=== PATIENT | male | born 1970 | race Caucasian/White ===

== ENCOUNTER 2018-11-25 15:10 | Observation (INO) ==
[2018-11-25] MEDS ORDERED: 0.9 % Sodium Chloride 1,000 ML IVC ONE (15:53)
--- NOTE | 2018-11-25 16:03 | Emergency Department Note ---
Disposition Clinical Impression: Hyponatremia Disposition: Admitted As Inpatient Condition: Fair Referrals: Mick Brunson MD [Primary Care Provider] - Forms: ED Satisfaction Letter Time of Disposition: 18:54 General Adult HPI - General Chief complaint: ED Dizziness Stated complaint: dizzy, swallowing issues Time Seen by Provider: 11/25/18 15:35 Source: patient, family Mode of arrival: private vehicle Limitations: no limitations Nursing Notes Reviewed: Yes Vital Signs Reviewed: Yes - History of Present Illness HPI Narrative: Patient presents to the ED complaining of feeling lightheaded, having trouble swallowing, nausea, vomiting and trouble urinating. States symptoms again this morning. He was having dry heaves yesterday. He reports several episodes of nonbloody nonbilious emesis today. No abdominal pain other than some cramping when he is vomiting. He has had loose stools for the past month but has not noted any blood. As far urination he feels the urge to urinate but will only urinate a small amount. He reported this to his PCP when he saw him on November 08 and he states he did some blood work to check his prostate. He has not heard about any of these results. He was also started on a Formoso patch for the first time on November 08. He went back for a routine checkup with his PCP on the at that time his Lasix dose was increased to 40 due to chronic swelling in his legs. He states that swelling is no decreasing. Does report some mild shortness of breath but denies any nasal congestion, rhinorrhea, sneezing or sore throat. He does occasionally cough up some white phlegm. Fever or chills. He has a history of throat and lung cancer that was first diagnosed in 1995. He underwent chemotherapy, radiation and surgery on his throat and 96. He had radiation treatment of his lungs and 96, again 4 years ago and again earlier this year. He follows with Dr. Vega of oncology with last visit 3 months ago. He is scheduled for follow-up next month. History of CVA, GERD and hypertension. He continues to smoke a quarter pack per day which he has for 32 years. He admits to occasional marijuana use. He does not wear oxygen at home. He has had a decreased appetite and is not eating much recently according to family but has continued to drink fluids. Pain Scale: 0 - Related Data Home Medications Medication Instructions Recorded Confirmed BHARATIZolam [Xanax 1 MG Tablet] 1 mg PO TID PRN 09/14/17 11/25/18 Levothyroxine [Synthroid] 100 mcg PO DAILY 09/14/17 11/25/18 OxyCODONE/APAP 10/325 [Percocet 1 each PO Q6HR PRN 09/14/17 11/25/18 10/325 MG] Aspirin [Adult Aspirin Regimen] 81 mg PO DAILY 02/26/18 11/25/18 Budesonide/Formoterol 160/4.5 1 puff IH BIDR 02/26/18 11/25/18 [Symbicort 160/4.5] Omeprazole [PriLOSEC] 40 mg PO DAILY 02/26/18 11/25/18 FentaNYL PATCH [Duragesic] 50 mcg TD Q72H 11/25/18 11/25/18 Furosemide [Lasix] 40 mg PO DAILY 11/25/18 11/25/18 Previous Rx's Medication Instructions Recorded Ondansetron ODT [Zofran ODT] 4 mg SL Q6HR #10 tab.rapdis 06/13/18 Allergies Allergy/AdvReac Type Severity Reaction Status Date / Time CONTRAST DYE AdvReac Weakness Uncoded 10/01/18 10:54 Constitutional: Denies: fever, chills, weakness, weight change Eyes: Denies: eye pain, eye discharge, vision change ENT ED: Denies: ear pain, throat pain, dental pain, hearing loss, epistaxis, congestion, dysphagia Cardiovascular: Denies: chest pain, palpitations, dyspnea on exertion, edema, syncope Respiratory: Reports: as per HPI, cough, dyspnea, sputum production. Denies: wheezes, hemoptysis, stridor Gastrointestinal: Reports: nausea, vomiting, diarrhea. Denies: abdominal pain, constipation, hematemesis, melena, hematochezia Genitourinary: Reports: urgency. Denies: dysuria, frequency, hematuria Musculoskeletal: Denies: back pain, neck pain, arthralgia, myalgia Integumentary: Denies: rash, abrasion, lesions Neurological: Denies: headache, weakness, numbness, paresthesias, confusion, abnormal gait, vertigo Psychiatric: Denies: anxiety, depression, suicidal thoughts, homicidal thoughts, auditory hallucinations, visual hallucinations Endocrine: Denies: fatigue Hematological/Lymphatic: Denies: easy bleeding, easy bruising Allergic/Immunologic: Denies: facial swelling, urticaria Past Medical History - Past Medical History Medical history: Reports: cancer, CVA, GERD, hypertension, thyroid disease Psychiatric history: Reports: schizophrenia - Social History Smoking Status: Current every day smoker Smokeless Tobacco Status: No Alcohol use: Reports: occasionally Drug use: Reports: marijuana Physical Exam - General Limitations: no limitations General appearance: alert, in no apparent distress, other (thin, frail appearing) - Head Head exam: atraumatic, normocephalic, normal inspection - Eye Eye exam: Present: normal appearance, PERRL, EOMI - ENT ENT exam: normal exam, normal oropharynx, mucous membranes moist - Neck Neck exam: Present: normal inspection, full ROM, trachea midline - Chest Chest inspection: Present: normal inspection, symmetric chest wall rise - Respiratory Respiratory exam: Present: normal lung sounds bilaterally - Cardiovascular Cardiovascular exam: Present: regular rate, normal rhythm, normal heart sounds - Abdominal Exam Abdominal exam: Present: soft, Non-Tender. Absent: tenderness, distention, guarding, rebound, rigidity - Extremities Exam Extremities exam: Present: normal inspection, full ROM, pedal edema (1+ bilaterally, no warmth). Absent: tenderness - Back Exam Back exam: Present: normal inspection, full ROM. Absent: tenderness - Neurological Exam Neurological exam: Present: alert, oriented X3 - Psychiatric Psychiatric exam: Present: normal affect, normal mood - Skin Skin exam: Present: warm, dry, intact, normal color Course Course Narrative: Agent presents to the ED complaining of some lightheadedness, nausea and vomiting, trouble urinating, trouble swallowing and occasional shortness of breath with a history of lung and throat cancer. Physical exam is unremarkable. He is nontoxic in appearance and hemodynamically stable although his blood pressure is borderline low. We will give IV hydration while labs and imaging are obtained. - Reevaluation(s) Reevaluation #1: Chest x-ray and soft tissue x-ray of the neck do not show any acute abnormalities. Laboratory studies are notable for a very mild leukocytosis of 12,000 and a significantly low sodium of 99. Kidney function is normal. Urinalysis does not show any evidence of infection. Tox screen is positive for benzos but patient does have prescribed Xanax. Orthostatic vital signs were unremarkable. Blood pressure did improve with some IV fluids. Patient will require admission for continued hydration and monitoring of his hyponatremia. I discussed this with patient and family and they are in agreement. Will contact the hospitalist. Time: 18:45 Reevaluation #2: I have spoken to Dr. Cota, hospice on-call who has agreed to accept the patient. Time: 18:53 Vital Signs Temperature 97.8 F 11/25/18 15:11 Pulse Rate 84 11/25/18 15:11 Respiratory Rate 18 11/25/18 15:11 Blood Pressure 102/67 11/25/18 15:11 O2 Sat by Pulse Oximetry 91 11/25/18 15:11 Temperature 97.8 F 11/25/18 15:11 Pulse Rate 80 11/25/18 18:03 Respiratory Rate 18 11/25/18 18:03 Blood Pressure 115/78 11/25/18 18:03 O2 Sat by Pulse Oximetry 97 11/25/18 18:03 Oxygen Delivery Oxygen Delivery Room Air Medical Decision Making - Medical Records Medical records reviewed: Yes I reviewed the patient's medical records. - Lab Data Lab results reviewed: Yes I reviewed the patient's lab results. Result diagrams: 11/25/18 16:05 11/25/18 16:05 Lab Results 11/25/18 11/25/18 11/25/18 Range/Units 16:05 16:05 17:32 WBC 12.5 H (4.3-11.1) K/mcL RBC 3.88 L (4.19-5.50) M/mcL Hgb 13.4 (12.9-16.9) g/dL Hct 37.3 L (37.5-50.1) % MCV 96.1 D (83.0-100.0) fL MCH 34.5 H (28.0-33.3) pg MCHC 35.9 H (31.6-35.5) g/dL RDW 15.3 H (11.5-14.5) % Plt Count 251 (140-400) K/mcL MPV 7.7 L (9.4-12.4) fL Immature Gran % 1.0 (0-4) % Seg Neutrophils % 89.6 % Lymphocytes % 2.9 % Monocytes % 5.8 % Eosinophils % 0.3 % Basophils % 0.4 % Neutrophils # 11.2 H (1.6-8.9) K/mcL Lymphocytes # 0.4 L (0.6-4.6) K/mcL Monocytes # 0.7 (0.0-1.3) K/mcL Eosinophils # 0.0 (0.0-0.6) K/mcL Basophils # 0.1 (0.0-0.2) K/mcL Sodium 99 L* (136-145) mEq/L Potassium 3.3 L (3.5-5.1) mEq/L Chloride 61 L (98-107) mEq/L Carbon Dioxide 32 H (23-29) mEq/L BUN 6 (6-20) mg/dL Creatinine 0.76 (0.70-1.30) mg/dL Est GFR ( Amer) > 60 (> 60) Est GFR (Non-Af Amer) > 60 (> 60) BUN/Creatinine Ratio 8 (6-26) Glucose 131 H (70-105) mg/dL Calculated Osmolality 207 L (280-300) Calcium 8.0 L (8.6-10.3) mg/dL Urine Color Yellow (Yellow) Urine Clarity Clear (Clear) Urine pH 7.0 (5.0-8.0) pH Units Ur Specific [place] 1.015 (1.010-1.025) Urine Protein Negative (Neg-Trace) mg/dL Urine Glucose (UA) Normal (Normal) mg/dL Urine Ketones Negative (Negative) mg/dL Urine Blood Negative (Negative) Urine Nitrite Negative (Negative) Urine Bilirubin Negative (Negative) Urine Urobilinogen Normal (Normal) mg/dL Ur Leukocyte Esterase Negative (Negative) Ur Culture Indicated? NO (NO) Urine Opiates Screen (Aaginj=383) ng/mL Ur Buprenorphine Scrn (Cutoff=5) ng/mL Ur Oxycodone Screen (Cutoff= 100) ng/mL Ur Barbiturates Screen (Tuibwd=705) ng/mL Ur Phencyclidine Scrn (Cutoff=25) ng/mL Ur Amphetamines Screen (Jibwqu=9566) ng/mL U Benzodiazepines Scrn (Rawfvd=491) ng/mL Urine Cocaine Screen (Cutoff= 300) ng/mL U Marijuana (THC) Screen (Cutoff = 50) ng/mL Ur Drug Screen Interp 11/25/18 Range/Units 17:33 WBC (4.3-11.1) K/mcL RBC (4.19-5.50) M/mcL Hgb (12.9-16.9) g/dL Hct (37.5-50.1) % MCV (83.0-100.0) fL MCH (28.0-33.3) pg MCHC (31.6-35.5) g/dL RDW (11.5-14.5) % Plt Count (140-400) K/mcL MPV (9.4-12.4) fL Immature Gran % (0-4) % Seg Neutrophils % % Lymphocytes % % Monocytes % % Eosinophils % % Basophils % % Neutrophils # (1.6-8.9) K/mcL Lymphocytes # (0.6-4.6) K/mcL Monocytes # (0.0-1.3) K/mcL Eosinophils # (0.0-0.6) K/mcL Basophils # (0.0-0.2) K/mcL Sodium (136-145) mEq/L Potassium (3.5-5.1) mEq/L Chloride (98-107) mEq/L Carbon Dioxide (23-29) mEq/L BUN (6-20) mg/dL Creatinine (0.70-1.30) mg/dL Est GFR ( Amer) (> 60) Est GFR (Non-Af Amer) (> 60) BUN/Creatinine Ratio (6-26) Glucose (70-105) mg/dL Calculated Osmolality (280-300) Calcium (8.6-10.3) mg/dL Urine Color (Yellow) Urine Clarity (Clear) Urine pH (5.0-8.0) pH Units Ur Specific [place] (1.010-1.025) Urine Protein (Neg-Trace) mg/dL Urine Glucose (UA) (Normal) mg/dL Urine Ketones (Negative) mg/dL Urine Blood (Negative) Urine Nitrite (Negative) Urine Bilirubin (Negative) Urine Urobilinogen (Normal) mg/dL Ur Leukocyte Esterase (Negative) Ur Culture Indicated? (NO) Urine Opiates Screen Negative (Onssju=905) ng/mL Ur Buprenorphine Scrn Negative (Cutoff=5) ng/mL Ur Oxycodone Screen Negative (Cutoff= 100) ng/mL Ur Barbiturates Screen Negative (Baifdu=840) ng/mL Ur Phencyclidine Scrn Negative (Cutoff=25) ng/mL Ur Amphetamines Screen Negative (Bngcfz=1905) ng/mL U Benzodiazepines Scrn Positive H (Kphfbo=941) ng/mL Urine Cocaine Screen Negative (Cutoff= 300) ng/mL U Marijuana (THC) Screen Negative (Cutoff = 50) ng/mL Ur Drug Screen Interp See Below - Radiology Data Radiology results reviewed: Yes I reviewed the patient's radiology results. ITS Impressions Chest X-Ray 11/25/18 15:53 IMPRESSION: Stable exam. D/ / Stephan Rodriguez / Stephan Rodriguez Interpreting Provider: Stephan Rodriguez Soft Tissue Neck X-Ray 11/25/18 15:54 IMPRESSION: No acute abnormality. D/ / Stepahn Rodriguez / Stephan Rodriguez Interpreting Provider: Stephan Rodriguez - EKG Data EKG #1 EKG attestation: Yes I reviewed and interpreted this EKG. EKG shows normal: sinus rhythm Rate: normal Rhythm: NSR [place]/QRS: normal Interpretation: no acute changes
[2018-11-25 16:49] LABS: BUN/Creatinine Ratio 8 (6-26); Blood Urea Nitrogen 6 mg/dL (6-20); Carbon Dioxide 32 mEq/L (23-29); Chloride 61 mEq/L (98-107); Glucose 131 mg/dL (70-105); Osmolality,Calculated 207 (280-300); Potassium 3.3 mEq/L (3.5-5.1); Sodium 99 mEq/L (136-145); eGFR For African Americans > 60 (> 60); eGFR For Non-African Americans > 60 (> 60)
[2018-11-25 17:06] LABS: Basophils # 0.1 K/mcL (0.0-0.2); Basophils % 0.4 %; Eosinophils % 0.3 %; Lymphocytes # 0.4 K/mcL (0.6-4.6); Lymphocytes % 2.9 %; Monocytes # 0.7 K/mcL (0.0-1.3); Monocytes % 5.8 %; Neutrophils # 11.2 K/mcL (1.6-8.9); Platelet Count 251 K/mcL (140-400); Segmented Neutrophils % 89.6 %; White Blood Count 12.5 K/mcL (4.3-11.1)
[2018-11-25] MEDS ORDERED: 0.9 % Sodium Chloride 1,000 ML IVC SCH (17:15)
[2018-11-25 17:40] LABS: Bilirubin,Urine Negative (Negative); Blood,Urine Negative (Negative); Clarity,Urine Clear (Clear); Color,Urine Yellow (Yellow); Glucose,Urine (UA) Normal (Normal); Ketones,Urine Negative (Negative); Leukocyte Esterase,Urine Negative (Negative); Nitrite,Urine Negative (Negative); Protein,Urine Negative (Neg-Trace); Specific Gravity,Urine 1.015 (1.010-1.025); Urobilinogen,Urine Normal (Normal)
[2018-11-25 17:42] LABS: Hematocrit 37.3 % (37.5-50.1); Hemoglobin 13.4 g/dL (12.9-16.9); Mean Corpuscular HGB Conc 35.9 g/dL (31.6-35.5); Mean Corpuscular Hemoglobin 34.5 pg (28.0-33.3); Mean Corpuscular Volume 96.1 fL (83.0-100.0); Mean Platelet Volume 7.7 fL (9.4-12.4); Red Blood Count 3.88 M/mcL (4.19-5.50); Red Cell Distribution Width 15.3 % (11.5-14.5)
[2018-11-25 17:52] LABS: Amphetamine Screen,Urine Negative ng/mL (Cutoff=1000); Barbiturate Screen,Urine Negative ng/mL (Cutoff=200); Benzodiazepines Screen,Urine Positive ng/mL (Cutoff=200); Cannabinoid Screen,Urine Negative ng/mL (Cutoff = 50); Cocaine Screen,Urine Negative ng/mL (Cutoff= 300); Opiate Screen,Urine Negative ng/mL (Cutoff=300); Phencyclidine Screen,Urine Negative ng/mL (Cutoff=25)
[2018-11-25] MEDS ORDERED: Naloxone 0.4 MG/ML INJ IVP PRN (18:55)
[2018-11-25] MEDS ORDERED: ALPRAZolam 1 MG TABLET PO PRN (23:15)
[2018-11-25] MEDS ORDERED: *HR* OxyCODONE/APAP 10/325 TABLET PO PRN (23:18)
[2018-11-25] MEDS ORDERED: Ondansetron ODT 4 MG TAB.RAPDIS SL PRN (23:19)
[2018-11-26] MEDS ORDERED: 0.9 % Sodium Chloride 1,000 ML IVC SCH (00:18)
[2018-11-26] MEDS ORDERED: *HR* FentaNYL PATCH 50 MCG PATCH TD SCH ×4 (00:18→09:00)
[2018-11-26] MEDS ORDERED: *HR* OxyCODONE/APAP 10/325 TABLET PO PRN (00:18)
[2018-11-26] MEDS ORDERED: Ondansetron ODT 4 MG TAB.RAPDIS SL PRN ×2 (00:18→11:22)
[2018-11-26] MEDS ORDERED: Ondansetron ODT 4 MG TAB.RAPDIS SL SCH (00:18)
[2018-11-26] MEDS ORDERED: Naloxone 0.4 MG/ML INJ IVP PRN (00:18)
[2018-11-26] MEDS ORDERED: ALPRAZolam 1 MG TABLET PO PRN (00:18)
[2018-11-26] MEDS ORDERED: Nicotine 7 MG PATCH.TD24 TD SCH ×2 (02:15→15:52)
[2018-11-26] MEDS: Budesonide/Formoterol 160/4.5 1 PUFF INH IH SCH ×3 (03:27→21:58)
[2018-11-26] MEDS: *HR* OxyCODONE/APAP 10/325 TABLET PO PRN ×3 (05:35→18:41)
[2018-11-26 06:15] LABS: Alanine Aminotransferase 19 Units/L (7-52); Albumin 2.7 g/dL (3.5-5.7); Albumin/Globulin Ratio 1.2 (1.1-2.2); Alkaline Phosphatase 74 Units/L (34-104); Aspartate Amino Transferase 39 Units/L (13-39); BUN/Creatinine Ratio 9 (6-26); Blood Urea Nitrogen 6 mg/dL (6-20); Calcium 7.4 mg/dL (8.6-10.3); Carbon Dioxide 33 mEq/L (23-29); Chloride 73 mEq/L (98-107); Globulin 2.2 g/dL (2.4-3.5); Glucose 95 mg/dL (70-105); Magnesium 1.6 mg/dL (1.6-2.6); Osmolality,Calculated 229 (280-300); Potassium 2.9 mEq/L (3.5-5.1); Sodium 111 mEq/L (136-145); Total Protein 4.9 g/dL (6.4-8.9); eGFR For African Americans > 60 (> 60); eGFR For Non-African Americans > 60 (> 60)
[2018-11-26] MEDS: Aspirin Enteric Coated 81 MG Tablet PO SCH (07:50)
[2018-11-26] MEDS ORDERED: NON-FORMULARY MEDICATION 1 EACH EACH (Omeprazole [Prilosec] 40 MG) PO SCH (09:00)
[2018-11-26] MEDS ORDERED: Aspirin 81 MG TAB.CHEW PO SCH ×2 (09:00)
[2018-11-26] MEDS ORDERED: Budesonide/Formoterol 160/4.5 1 PUFF INH IH SCH ×2 (10:00)
--- NOTE | 2018-11-26 10:58 | Internal Med History&Physical ---
Date of Encounter: 11/26/18 Time of Encounter: 10:05 Assessment and Plan (1) Hyponatremia Current visit: Yes Status: Acute Likely secondary to diuretic use with vomiting and diarrhea. Sodium level was normal at 137 on 11/01/2018. IV fluids have been ordered. Antiemetics will be given as needed. (2) Hypokalemia Current visit: Yes Status: Acute Present on all labs since February 2018. Supplemental potassium has been ordered. (3) Neutrophilic leukocytosis Current visit: Yes Status: Acute Etiology uncertain. Pro-calcitonin level will be ordered. (4) Lung cancer Current visit: Yes Status: Acute Cell type and stage unknown. Follow-up with [facility] oncology as scheduled in a few weeks. Qualifiers: Laterality: right Lung location: upper lobe of lung Qualified Code(s): C34.11 - Malignant neoplasm of upper lobe, right bronchus or lung (5) Hypothyroidism Current visit: Yes Status: Chronic TSH will be checked. Qualifiers: Hypothyroidism type: unspecified Qualified Code(s): E03.9 - Hypothyroidism, unspecified Internal Medicine - H&P: HPI Chief complaint: Weakness, hyponatremia Admitted From: Emergency Dept Plans for Post Hospital Care: Home History of present illness: Mr. Saldaña is a 48 year old male who came to emergency room complaining of increased weakness over the past 3 days. He reports dry heaves initially but had several episodes of nonbloody vomiting the day prior to admission. Reports he had diarrhea for approximately 10 days without visible blood. He denies fevers or chills. He was evaluated in emergency room and was found to have hyponatremia and hypokalemia. He was admitted to [facility] floor for ongoing care needs. He reports he was placed on Lasix approximately one month ago by his PCP for ankle edema. Cardiovascular history is negative for hypertension, documented heart failure, VT, DVT or pulmonary embolus. He reports negative venous Doppler of both legs 2017. He reports unremarkable EST approximately 2012. He reports echocardiogram 2013 with unknown results. Past Med Surg Social Fam HX - Past Medical History Medical history: cancer, CVA, GERD, hypertension, thyroid disease Additional medical history: right lung cancer last radiation treatment was July 2018 Psychiatric history: anxiety, depression, schizophrenia - Past Surgical History Additional surgical history: throat surgery r/t cancer - Social History Smoking Status: Current every day smoker Packs per day: 04/13 Smokeless Tobacco Status: No Alcohol use: occasionally Drug use: marijuana Internal Medicine - H&P: Meds ALPRAZolam [Xanax 1 MG Tablet] 1 mg PO TID PRN 09/14/17 [History] Levothyroxine [Synthroid] 100 mcg PO DAILY 09/14/17 [History] OxyCODONE/APAP 10/325 [Percocet 10/325 MG] 1 each PO Q6HR PRN 09/14/17 [History] Aspirin [Adult Aspirin Regimen] 81 mg PO DAILY 02/26/18 [History] Budesonide/Formoterol 160/4.5 [Symbicort 160/4.5] 1 puff IH BIDR 02/26/18 [History] Omeprazole [PriLOSEC] 40 mg PO DAILY 02/26/18 [History] Ondansetron ODT [Zofran ODT] 4 mg SL Q6HR #10 tab.rapdis 06/13/18 [Rx] FentaNYL PATCH [Duragesic] 50 mcg TD Q72H 11/25/18 [History] Furosemide [Lasix] 40 mg PO DAILY 11/25/18 [History] Allergy/AdvReac Type Severity Reaction Status Date / Time CONTRAST DYE AdvReac Weakness Uncoded 10/01/18 10:54 All Systems PM: A 10-system review of systems was performed and is negative for pertinent findings except as documented above in the HPI. Review of systems: Gen.: He states his weight has been stable for several months except for fluid fluctuation Cardiovascular: As per history of present illness Respiratory: He has smoked since age 16 never exceeding 1 pack per day. He denies knowledge of chronic lung disease and does not use home oxygen. He reports he has a nebulizer machine and uses [facility]. GI: He has had GERD in the past. 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 He reports he had right foot drop approximately 1997 with recovery. He reports he had CVA approximately 1997 with no permanent neurologic deficit. He denies seizures. 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 In 2013 he was diagnosed with stage IV lung cancer with metastases to intrathoracic lymph nodes. The cell type of lung cancer is not known. He denies distant metastases. He transferred oncology [facility] from [facility] to [facility] physicians August 2018. He denies other known malignancies blood disorders or anemia Psychiatric: He has anxiety and depression but denies other mental health diagnoses. [place] skeletal: He has no known gout. He states he has "deep muscle aches". - Constitutional Vitals: Temp Pulse Resp BP Pulse Ox 97.6 F 66 20 107/73 99 11/26/18 10:42 11/26/18 10:42 11/26/18 10:42 11/26/18 10:42 11/26/18 10:42 Exam: Gen.: He is a well-developed well-nourished male sitting on the side of bed who appears in no acute distress HEENT: Head is atraumatic and normocephalic. Eyes: EOMI. There is no scleral icterus. Mouth: Mucosa is moist. Neck: Supple and nontender. There is no thyromegaly or adenopathy noted. Heart: Regular without murmurs gallops or ectopics Lungs: No wheezes or crackles are heard. Abdomen: Soft and nontender. No masses or guarding are noted. Extremities: He has 1+ edema of the lower legs and dorsum of the feet bi laterally. Dorsalis pedis and posterior tibial pulses are not palpable. Neurologic: Mental status: He is talkative and a good historian. Cranial nerves: Smile is symmetric. There is very slight flattening of the right nasolabial fold at rest. Right forehead shows slight flattening of musculature at rest but moves on forehead wrinkling maneuver. Tongue protrudes midline. EOMI. Motor: There is no pronator drift. Cerebellar: Finger to nose is intact bilaterally. Skin: Warm and dry Internal Med - H&P Results - Labs CBC & Chem 7: 11/25/18 16:05 11/26/18 05:23 Labs: Short CBC 11/25/18 Range/Units 16:05 WBC 12.5 H (4.3-11.1) K/mcL Hgb 13.4 (12.9-16.9) g/dL Hct 37.3 L (37.5-50.1) % Plt Count 251 (140-400) K/mcL Neutrophils # 11.2 H (1.6-8.9) K/mcL BMP 11/25/18 11/26/18 16:05 05:23 Sodium 99 L* 111 L* D Potassium 3.3 L 2.9 L Chloride 61 L 73 L Carbon Dioxide 32 H 33 H BUN 6 6 Creatinine 0.76 0.68 L Glucose 131 H 95 Calcium 8.0 L 7.4 L Liver Function 11/26/18 Range/Units 05:23 Total Bilirubin 1.0 (0.3-1.0) mg/dL AST 39 (13-39) Units/L ALT 19 (7-52) Units/L Alkaline Phosphatase 74 (34-104) Units/L Albumin 2.7 L (3.5-5.7) g/dL Urine 11/25/18 Range/Units 17:32 Urine Color Yellow (Yellow) Urine Clarity Clear (Clear) Urine pH 7.0 (5.0-8.0) pH Units Ur Specific [place] 1.015 (1.010-1.025) Urine Protein Negative (Neg-Trace) mg/dL Urine Glucose (UA) Normal (Normal) mg/dL - Impressions ITS Impressions Chest X-Ray 11/25/18 15:53 IMPRESSION: Stable exam. D/ / Stephan Rodriguez / Stephan Rodriguez Interpreting Provider: Stephan Rodriguez Soft Tissue Neck X-Ray 11/25/18 15:54 IMPRESSION: No acute abnormality. D/ / Stephan Rodriguez / Stephan Rodriguez Interpreting Provider: Stephan Rodriguez - VTE Reasons for not Prescribing Prophylaxis: Treatment not Indicated - Low risk for VTE
[2018-11-26] MEDS: 0.9 % Sodium Chloride 1,000 ML IVC SCH (15:09)
[2018-11-26] MEDS ORDERED: Nicotine 21 MG PATCH.TD24 TD SCH (16:15)
--- NOTE | 2018-11-26 17:38 | Electrocardiograph Report ---
[address] [address] Test Date: 2018-11-25 Pat Name: Scott Saldaña Department: EDP-12 Room: [facility] Gender: M Machine Stamper: : 1970 Requested By: Floresita Frias Order Number: [id number] Reading MD: Cuba Montero Measurements Intervals [place] Rate: 82 P: 52 DE: 200 QRS: 59 QRSD: 113 T: 59 QT: 456 QTc: 533 Interpretive Statements Sinus rhythm Borderline intraventricular conduction delay Electronically Signed On 11-26-2018 17:36:34 EDT by Cuba Montero
[2018-11-26] MEDS: ALPRAZolam 1 MG TABLET PO PRN (18:41)
[2018-11-27] MEDS: *HR* OxyCODONE/APAP 10/325 TABLET PO PRN (06:29)
[2018-11-27 06:45] LABS: Basophils % 0.5 %; Eosinophils # 0.2 K/mcL (0.0-0.6); Eosinophils % 2.4 %; Hematocrit 34.6 % (37.5-50.1); Hemoglobin 12.4 g/dL (12.9-16.9); Immature Granulocytes % 0.9 % (0-4); Lymphocytes # 0.7 K/mcL (0.6-4.6); Lymphocytes % 8.2 %; Mean Corpuscular HGB Conc 35.8 g/dL (31.6-35.5); Mean Corpuscular Hemoglobin 35.8 pg (28.0-33.3); Mean Platelet Volume 8.6 fL (9.4-12.4); Monocytes # 0.6 K/mcL (0.0-1.3); Monocytes % 7.4 %; Neutrophils # 6.4 K/mcL (1.6-8.9); Platelet Count 226 K/mcL (140-400); Red Blood Count 3.46 M/mcL (4.19-5.50); Segmented Neutrophils % 80.6 %; White Blood Count 7.9 K/mcL (4.3-11.1)
[2018-11-27 07:26] VITALS: BP 105/78
[2018-11-27 08:02] LABS: Alanine Aminotransferase 19 Units/L (7-52); Albumin 2.8 g/dL (3.5-5.7); Albumin/Globulin Ratio 1.1 (1.1-2.2); Alkaline Phosphatase 73 Units/L (34-104); Aspartate Amino Transferase 29 Units/L (13-39); BUN/Creatinine Ratio 6 (6-26); Bilirubin,Total 0.5 mg/dL (0.3-1.0); Blood Urea Nitrogen 5 mg/dL (6-20); Carbon Dioxide 33 mEq/L (23-29); Chloride 90 mEq/L (98-107); Globulin 2.5 g/dL (2.4-3.5); Glucose 104 mg/dL (70-105); Osmolality,Calculated 262 (280-300); Phosphorous 2.6 mg/dL (2.7-4.5); Potassium 4.2 mEq/L (3.5-5.1); Sodium 127 mEq/L (136-145); Thyroid Stimulating Hormone 25.794 mcIU/mL (0.340-5.600); Total Protein 5.3 g/dL (6.4-8.9); eGFR For African Americans > 60 (> 60); eGFR For Non-African Americans > 60 (> 60)
[2018-11-27] MEDS: Aspirin Enteric Coated 81 MG Tablet PO SCH (08:52)
[2018-11-27] MEDS: ALPRAZolam 1 MG TABLET PO PRN (08:52)
[2018-11-27] MEDS: 0.9 % Sodium Chloride 1,000 ML IVC SCH (09:03)
[2018-11-27] MEDS: Budesonide/Formoterol 160/4.5 1 PUFF INH IH SCH (10:48)
--- NOTE | 2018-11-27 10:49 | Discharge Summary ---
Date of Encounter: 11/27/18 Time of Encounter: 10:25 - Discharge Diagnosis (1) Hyponatremia Priority: Primary Status: Acute (2) Hypokalemia Priority: Secondary Status: Acute (3) Neutrophilic leukocytosis Priority: Secondary Status: Acute (4) Lung cancer Priority: Secondary Status: Chronic Qualifiers: Laterality: right Lung location: upper lobe of lung Qualified Code(s): C34.11 - Malignant neoplasm of upper lobe, right bronchus or lung (5) Hypothyroidism Priority: Secondary Status: Chronic Qualifiers: Hypothyroidism type: unspecified Qualified Code(s): E03.9 - Hypothyroidism, unspecified Hospital course: Mr. Saldaña is a 48 year old male who came to emergency room complaining of increased weakness over the past 3 days. He reports dry heaves initially but had several episodes of nonbloody vomiting the day prior to admission. He reports he had diarrhea for approximately 10 days without visible blood. He denies fevers or chills. He was evaluated in emergency room and was found to have hyponatremia and hypokalemia. He was admitted to [facility] for ongoing care needs. Initial orders were written by the emergency room physician. I saw him on November 26 and performed the history and physical. He had no further vomiting or diarrhea after admission. Lasix was discontinued. Sodium level improved to 127 by day of discharge. He remained asymptomatic. Supplemental potassium was given and potassium normalized to 4.2 by day of discharge. WBC normalized by day of discharge. Left shift was still present on differential. PCP can monitor. TSH returned elevated at 25.794. He reported he had received increased dose Synthroid prescription a few days prior to admission. I will not further adjust the dose at this time. He will be discharged home and follow with his PCP within 1 week. - Time Spent with Patient Total time spent providing and/or coordinating discharge services: - Discharge Medications Prescriptions: Continued OxyCODONE/APAP 10/325 [Percocet 10/325 MG] 1 each PO Q6HR PRN PRN Reason: Pain Levothyroxine [Synthroid] 100 mcg PO DAILY ALPRAZolam [Xanax 1 MG Tablet] 1 mg PO TID PRN PRN Reason: Anxiety Omeprazole [PriLOSEC] 40 mg PO DAILY Budesonide/Formoterol 160/4.5 [Symbicort 160/4.5] 1 puff IH BIDR Aspirin [Adult Aspirin Regimen] 81 mg PO DAILY Ondansetron ODT [Zofran ODT] 4 mg SL Q6HR #10 tab.rapdis FentaNYL PATCH [Duragesic] 50 mcg TD Q72H Discontinued Furosemide [Lasix] 40 mg PO DAILY Home Medications: ALPRAZolam [Xanax 1 MG Tablet] 1 mg PO TID PRN 09/14/17 [History] Levothyroxine [Synthroid] 100 mcg PO DAILY 09/14/17 [History] OxyCODONE/APAP 10/325 [Percocet 10/325 MG] 1 each PO Q6HR PRN 09/14/17 [History] Aspirin [Adult Aspirin Regimen] 81 mg PO DAILY 02/26/18 [History] Budesonide/Formoterol 160/4.5 [Symbicort 160/4.5] 1 puff IH BIDR 02/26/18 [History] Omeprazole [PriLOSEC] 40 mg PO DAILY 02/26/18 [History] Ondansetron ODT [Zofran ODT] 4 mg SL Q6HR #10 tab.rapdis 06/13/18 [Rx] FentaNYL PATCH [Duragesic] 50 mcg TD Q72H 11/25/18 [History] Allergies/Adverse Reactions: Allergy/AdvReac Type Severity Reaction Status Date / Time CONTRAST DYE AdvReac Weakness Uncoded 10/01/18 10:54 Date of admission: 11/25/18 19:00 Primary care physician: Mick Brunson MD Consults: 11/25/18 22:36 Consult to Pastoral Services [CONS] Routine Comment: Consult to Chemistry Manager [CONS] Routine Reason for SW Consult: patient has concerns about receiving home health - Constitutional Vitals: Temp Pulse Resp BP Pulse Ox 98.3 F 95 19 105/78 97 11/27/18 07:19 11/27/18 07:19 11/27/18 07:19 11/27/18 07:19 11/27/18 07:19 - Patient Status Disposition: Home, Self-Care Condition: Fair - Discharge Instructions Follow Up With: Mick Brunson MD [Primary Care Provider] - 1 week - Diet and Activity Activity: resume usual activities as tolerated Diet: advance to your usual diet - VTE Reasons for not Prescribing Prophylaxis: Treatment not Indicated - Low risk for VTE
== END 2018-11-27 11:57 | disposition home or self-care (01) ==
LOC: INPPIK 15:10 → EMEROOPIK 15:10 → INPPIK 19:53
PROVIDERS: ADMIT Internal Medicine; ATTEND Internal Medicine